=== PATIENT | male | born 1970 | race Caucasian/White ===

== ENCOUNTER 2018-04-27 17:15 | Emergency (ER) | payer SELFPAY ==
--- NOTE | 2018-04-27 18:34 | ER Document Report ---
ED General - General Mode of Arrival: Ambulatory Information source: Patient TRAVEL OUTSIDE OF THE [place] IN LAST 30 DAYS: No - General Chief Complaint: Fall Injury Stated Complaint: FALL/BODY PAIN Time Seen by Provider: 04/27/18 17:49 Notes: Patient is a 47 year old male with asthma and COPD presents to the emergency department complaining of lower back and right shoulder pain onset today. Patient states he fell off a roof due to loosing his footing on a ladder and proceeded to land on his feet then back on the grass. Patient states he is unsure if he had a loss of consciousness further stating he briefly saw black spots while on the ground. Patient also complains of pain with deep breathing. Patient denies any urinary or fecal incontinece or numbness tingling or weakness. Patient mentions his last tetanus shot being approximately 5 years ago. (ROBERT GARCIA) - Related Data Allergies/Adverse Reactions: ibuprofen [From Motrin] Adverse Reaction (Verified 04/27/18 17:16) Nausea Past Medical History - General Information source: Patient - Social History Smoking Status: Current Every Day Smoker Frequency of alcohol use: None Drug Abuse: None Family History: Reviewed & Not Pertinent, CAD, CVA, Hyperlipidemia, Hypertension , Malignancy Patient has suicidal ideation: No Patient has homicidal ideation: No Pulmonary Medical History: Reports: Hx Asthma Past Surgical History: Reports: Hx Abdominal Surgery - Right inguinal hernia, Hx Inguinal Hernia, Hx Orthopedic Surgery - Left arm - Immunizations Immunizations up to date: Yes Hx Diphtheria, Pertussis, Tetanus Vaccination: Yes Review of Systems - Review of Systems Constitutional: No symptoms reported EENT: No symptoms reported Cardiovascular: No symptoms reported Respiratory: See HPI Gastrointestinal: No symptoms reported Genitourinary: No symptoms reported Male Genitourinary: No symptoms reported Musculoskeletal: See HPI Skin: No symptoms reported Hematologic/Lymphatic: No symptoms reported Neurological/Psychological: No symptoms reported -: Yes All other systems reviewed and negative Physical Exam - Vital signs Vitals: Temp Pulse Resp BP Pulse Ox 98.2 F 91 20 116/92 H 97 04/27/18 17:19 04/27/18 17:19 04/27/18 17:19 04/27/18 17:19 04/27/18 17:19 - Notes Notes: GENERAL: Alert, interacts well. No acute distress. HEAD: Normocephalic, atraumatic. EYES: Pupils equal, round, and reactive to light. Extraocular movements intact. ENT: Oral mucosa moist, tongue midline. NECK: Full range of motion. Supple. Trachea midline. LUNGS: Clear to auscultation bilaterally, no wheezes, rales, or rhonchi. No respiratory distress. HEART: Regular rate and rhythm. No murmurs, gallops, or rubs. ABDOMEN: Soft, LLQ and epigastric tenderness to palpation. Non-distended. Bowel sounds present in all 4 quadrants. No bruising or signs of trauma. EXTREMITIES: Moves all 4 extremities spontaneously. 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 No edema , radial and dorsalis pedis pulses 2/4 bilaterally. No cyanosis. NEUROLOGICAL: Alert and oriented x3. Normal speech. Biceps and patellar DTRs 2 + bilaterally. PSYCH: Normal affect, normal mood. SKIN: Warm, dry, normal turgor. Superficial abrasions to the volar aspect of bilateral forearms, no active bleeding. BACK: Tender to palpation to mid back around T19-T10. No tenderness to scapula bilaterally. No step-offs or deformities. (ROBERT GARCIA) Course - Re-evaluation Re-evalutation: 04/27/18 22:18 Ct cervical spine is negative, x-rays of thoracic, lumbar, sacrum and coccyx. Patient has no neurologic deficits. He will be discharged on robaxin and NSAIDs. (BECKY CONN) - Vital Signs Vital signs: Temp Pulse Resp BP Pulse Ox 98 F 91 15 119/70 98 04/27/18 22:01 04/27/18 17:19 04/27/18 22:01 04/27/18 22:01 04/27/18 22:01 Discharge - Discharge Clinical Impression: Fall Qualifiers: Encounter type: initial encounter Qualified Code(s): W19.XXXA - Unspecified fall, initial encounter Abrasion forearm Qualifiers: Encounter type: initial encounter Laterality: right Qualified Code(s): S50.811A - Abrasion of right forearm, initial encounter Back strain Qualifiers: Encounter type: initial encounter Qualified Code(s): S39.012A - Strain of muscle, fascia and tendon of lower back, initial encounter Condition: Stable Disposition: HOME, SELF-CARE Additional Instructions: Please use ibuprofen (Motrin or Advil) 600-800 mg every 8 hours as needed for pain or fever. You may also use acetaminophen (Tylenol) 1000 mg every 4-6 hours as needed for pain or fever. Please be aware that many medications contain acetaminophen, do not exceed a total of 1000 mg of acetaminophen every 6 hours. Prescriptions: Methocarbamol [Robaxin 750 mg Tablet] 750 mg PO ASDIR PRN #40 tablet PRN Reason: Referrals: JASS MACHADO MD [ACTIVE STAFF] - Follow up as needed Scribe Attestation: 04/27/18 23:24 I personally performed the services described in the documentation, reviewed and edited the documentation which was dictated to the scribe in my presence, and it accurately records my words and actions. (BECKY CONN) Scribe Documentation - Scribe Written by Carlos:: Carlos Prado, 04/27/2018 18:45 acting as scribe for :: Janice
[2018-04-27] MEDS ORDERED: MORPHINE SULFATE 10 MG/ML INJ IV ONE (18:49)
--- NOTE | 2018-04-27 19:20 | RADIOLOGY REPORT (SQ) ---
EXAM DESCRIPTION: CT CERVICAL SPINE WITHOUT COMPLETED DATE/TIME: 04/27/2018 7:04 pm REASON FOR STUDY: fell off roof COMPARISON: 09/20/2015 TECHNIQUE: Axial images acquired through the cervical spine without intravenous contrast. Images re viewed with lung, soft tissue and bone windows. Reconstructed coronal and sagittal MPR images review ed. Images stored on PACS. All CT scanners at this facility use dose modulation, iterative reconstruction, and/or weight based d osing when appropriate to reduce radiation dose to as low as reasonably achievable (ALARA). [facility]: Dose Right [facility]: CareDose [facility]: Dose Right [facility]: Teradose 4D [facility]: Smart [employer] RADIATION DOSE: CT Rad equipment meets quality standard of care and radiation dose reduction techniq ues were employed. CTDIvol: 30.4 mGy. DLP: 686 mGy-cm. mGy. LIMITATIONS: None. FINDINGS: ALIGNMENT: Anatomic. MINERALIZATION: Normal. VERTEBRAL BODIES: No fractures or dislocation. DISCS: Multilevel disc space narrowing with osteophytes. FACETS, LATERAL MASSES, POSTERIOR ELEMENTS: Facet arthropathy. No fractures. No dislocation. No ac [place] findings. HARDWARE: None in the spine. VISUALIZED RIBS: No fractures. LUNG APICES AND SOFT TISSUES: No significant or acute findings. OTHER: No other significant finding. IMPRESSION: CHRONIC DEGENERATIVE CHANGES. NO ACUTE FINDINGS. TECHNICAL DOCUMENTATION: JOB ID: [id number] [place]-72 Quality ID # [id number]: Final reports with documentation of one or more dose reduction techniques (e.g., Au tomated exposure control, adjustment of the mA and/or kV according to patient size, use of iterative reconstruction technique) 2010 [employer]- All Rights Reserved Reading location - IP/workstation name: [email or web address]
--- NOTE | 2018-04-27 19:52 | RADIOLOGY REPORT (SQ) ---
EXAM DESCRIPTION: T SPINE AP/LAT COMPLETED DATE/TIME: 04/27/2018 7:24 pm REASON FOR STUDY: fell off roof COMPARISON: None. NUMBER OF VIEWS: Two views. TECHNIQUE: AP and lateral radiographic images acquired of the thoracic spine. LIMITATIONS: None. FINDINGS: MINERALIZATION: Normal. ALIGNMENT: Normal. No scoliosis. VERTEBRAE: No fracture or bone lesion. Maintained height, normal segmentation. DISCS: Multilevel disc space narrowing with osteophytes. HARDWARE: None in the spine. MEDIASTINUM AND SOFT TISSUES: Normal heart size and aortic contour. No soft tissue abnormality. VISUALIZED LUNG BARBER: Clear. OTHER: No other significant finding. IMPRESSION: SPONDYLOSIS WITHOUT BONE LESION OR FRACTURE. TECHNICAL DOCUMENTATION: JOB ID: [id number] [place]-72 2010 [employer]- All Rights Reserved Reading location - IP/workstation name: [email or web address]
--- NOTE | 2018-04-27 19:54 | RADIOLOGY REPORT (SQ) ---
EXAM DESCRIPTION: L SPINE WHOLE COMPLETED DATE/TIME: 04/27/2018 7:24 pm REASON FOR STUDY: fell off roof COMPARISON: 09/20/2015 NUMBER OF VIEWS: Five views including obliques. TECHNIQUE: AP, lateral, oblique, and sacral radiographic images acquired of the lumbar spine. LIMITATIONS: None. FINDINGS: MINERALIZATION: Normal. SEGMENTATION: Normal. No transitional anatomy. ALIGNMENT: Similar anterolisthesis of L5 on S1. VERTEBRAE: Maintained height. No fracture or worrisome bone lesion. DISCS: Multilevel disc space narrowing with osteophytes. POSTERIOR ELEMENTS: Pedicles and facets are intact. Bilateral L5 pars defects. Facet arthropathy is present. HARDWARE: None in the spine. PARASPINAL SOFT TISSUES: Normal. PELVIS: Intact as visualized. No fractures or worrisome bone lesions. SI joints intact. OTHER: No other significant finding. IMPRESSION: No acute findings. TECHNICAL DOCUMENTATION: JOB ID: [id number] [place]-72 2010 [employer]- All Rights Reserved Reading location - IP/workstation name: [email or web address]
--- NOTE | 2018-04-27 19:56 | RADIOLOGY REPORT (SQ) ---
EXAM DESCRIPTION: SACRUM AND COCCYX COMPLETED DATE/TIME: 04/27/2018 7:25 pm REASON FOR STUDY: fell off roof COMPARISON: None. NUMBER OF VIEWS: Three views. TECHNIQUE: AP, lateral, and tilt views of the sacrum and coccyx. LIMITATIONS: None. FINDINGS: MINERALIZATION: Normal. BONES: No acute fracture or dislocation. No worrisome bone lesions. SOFT TISSUES: No soft tissue swelling. No foreign body. OTHER: No other significant finding. IMPRESSION: No fracture identified. TECHNICAL DOCUMENTATION: JOB ID: [id number] [place]-72 2010 [employer] All Rights Reserved Reading location - IP/workstation name: [email or web address]
[2018-04-27 20:14] LABS: APPEARANCE,URINE CLOUDY; BILIRUBIN,URINE NEGATIVE (NEGATIVE); COLOR,URINE YELLOW; GLUCOSE, URINE NEGATIVE (NEGATIVE); KETONES,URINE NEGATIVE (NEGATIVE); LEUKOCYTE ESTERASE,URINE NEGATIVE (NEGATIVE); NITRITE,URINE NEGATIVE (NEGATIVE); PROTEIN,URINE NEGATIVE (NEGATIVE); URINE SPECIFIC GRAVITY 1.024; UROBILINOGEN,URINE NEGATIVE mg/dL (<2.0)
[2018-04-27] MEDS ORDERED: HYDROCODONE/ACETAMINOPHEN 5-325 MG TABLET PO ONE (22:18)
[2018-04-27] MEDS ORDERED: METHOCARBAMOL 750 MG TABLET PO ONE (22:18)
[2018-04-27 22:42] VITALS: BP 119/70
== END 2018-04-27 22:42 | disposition home or self-care (01) ==
LOC: ER 17:15
DX: S39.012A Strain of muscle, fascia and tendon of lower back, initial encounter (principal); S50.811A Abrasion of right forearm, initial encounter; S50.812A Abrasion of left forearm, initial encounter; M25.511 Pain in right shoulder; R07.1 Chest pain on breathing; R10.814 Left lower quadrant abdominal tenderness; R10.816 Epigastric abdominal tenderness; W13.2XXA Fall from, out of or through roof, initial encounter; H53.8 Other visual disturbances; J44.9 Chronic obstructive pulmonary disease, unspecified; F17.200 Nicotine dependence, unspecified, uncomplicated
CPT/HCPCS: 99284; 96374; 81001; 72220; 72110; 72070; 72125; L0120; J3490; J2270

== ENCOUNTER 2018-07-19 02:01 | Observation (INO) | payer SELFPAY ==
[2018-07-19 02:19] LABS: ABSOLUTE EOSINOPHILS # (AUTO) 0.3 10^3/uL (0.0-0.6); ABSOLUTE LYMPHOCYTES (AUTO) 2.2 10^3/uL (0.5-4.7); ABSOLUTE MONOCYTES (AUTO) 0.4 10^3/uL (0.1-1.4); ABSOLUTE NEUT (AUTO) 3.9 10^3/uL (1.7-8.2); BASOPHILS % (AUTO) 0.1 % (0-2); EOSINOPHILS % (AUTO) 4.9 % (0-6); HEMATOCRIT 43.6 % (37.9-51.0); HEMOGLOBIN 14.6 g/dL (13.5-17.0); MEAN CORPUSCULAR HEMOGLOBIN 27.9 pg (27.0-33.4); MEAN CORPUSCULAR HGB CONC 33.4 g/dL (32.0-36.0); MEAN CORPUSCULAR VOLUME 83 fl (80-97); MONOCYTES % (AUTO) 6.4 % (3-13); PLATELET COUNT 291 10^3/uL (150-450); RED BLOOD COUNT 5.23 10^6/uL (4.35-5.55); RED CELL DISTRIBUTION WIDTH 13.8 % (11.5-14.0); SEGMENTED NEUTROPHILS % (AUTO) 56.6 % (42-78); TOTAL CELLS COUNTED % (AUTO) 100 %; WHITE BLOOD COUNT 6.9 10^3/uL (4.0-10.5)
[2018-07-19 02:33] LABS: ALANINE AMINOTRANSFERASE 16 U/L (21-72); ALKALINE PHOSPHATASE 56 U/L (38-126); ANION GAP 9 (5-19); ASPARTATE AMINO TRANSFERASE 27 U/L (17-59); BILIRUBIN,DIRECT 0.2 mg/dL (0.0-0.4); BILIRUBIN,TOTAL 0.3 mg/dL (0.2-1.3); BLOOD UREA NITROGEN 17 mg/dL (7-20); CALCIUM 9.1 mg/dL (8.4-10.2); CARBON DIOXIDE 29 mmol/L (22-30); CHLORIDE 105 mmol/L (98-107); CREATINE KINASE 113 U/L (55-170); GLUCOSE 117 mg/dL (75-110); POTASSIUM 3.7 mmol/L (3.6-5.0); SODIUM 142.5 mmol/L (137-145); TOTAL PROTEIN 7.1 g/dL (6.3-8.2)
[2018-07-19 02:44] LABS: CREATINE KINASE MB 0.62 ng/mL (<4.55); TROPONIN I < 0.012 ng/mL
--- NOTE | 2018-07-19 02:47 | RADIOLOGY REPORT (SQ) ---
EXAM DESCRIPTION: AP view of the chest CLINICAL HISTORY:47 years Male, chest pain Comparison: None FINDINGS: No focal lung consolidation. No pleural effusion. No pneumothorax. Cardiac and mediastinal silhouette is unremarkable. No acute osseous abnormality. Old left clavicle fracture. Soft tissues are unremarkable. IMPRESSION: No acute findings. No focal lung consolidation.
--- NOTE | 2018-07-19 03:19 | ER Document Report ---
ED General - General Chief Complaint: Chest Pain Stated Complaint: CHEST PAIN Time Seen by Provider: 07/19/18 02:04 Notes: Patient is a 47-year-old male presents to the emergency department complaining of generalized substernal chest pain squeezing in nature in the center of his chest radiating to left shoulder blades. Patient states the pain also increases when he takes a deep breath but does not increase on palpation. Patient states he got out of long term this evening and has been walking around [place] over 9 miles trying to find a place to stay. States he tried a homeless center but they would not take him. Patient states as he was walking he and inevitably developed the chest pain. Patient denies shortness of breath, URI symptoms, fever, abdominal pain, nausea, vomiting, dizziness, or feeling lightheaded. Past medical history: COPD, past [place] Medications: Advair, albuterol Allergies: Motrin Patient does admit to smoking cigarettes. TRAVEL OUTSIDE OF THE [place] IN LAST 30 DAYS: No - Related Data Allergies/Adverse Reactions: ibuprofen [From Motrin] Adverse Reaction (Verified 04/27/18 17:16) Nausea Past Medical History - General Information source: Patient - Social History Smoking Status: Current Every Day Smoker Family History: Reviewed & Not Pertinent, CAD, CVA, Hyperlipidemia, Hypertension, Malignancy Pulmonary Medical History: Reports: Hx Asthma Renal/ Medical History: Denies: Hx Peritoneal Dialysis Past Surgical History: Reports: Hx Abdominal Surgery - Right inguinal hernia, Hx Inguinal Hernia, Hx Orthopedic Surgery - Left arm - Immunizations Immunizations up to date: Yes Hx Diphtheria, Pertussis, Tetanus Vaccination: Yes Review of Systems - Review of Systems Constitutional: No symptoms reported EENT: No symptoms reported Cardiovascular: See HPI Respiratory: See HPI Gastrointestinal: No symptoms reported Genitourinary: No symptoms reported Male Genitourinary: No symptoms reported Musculoskeletal: No symptoms reported Skin: No symptoms reported Hematologic/Lymphatic: No symptoms reported Neurological/Psychological: No symptoms reported Physical Exam - Vital signs Vitals: Pulse Ox 97 07/19/18 02:04 - Notes Notes: GENERAL: Alert, interacts well. No acute distress. HEAD: Normocephalic, atraumatic. EYES: Pupils equal, round, and reactive to light. Extraocular movements intact. ENT: Oral mucosa moist, tongue midline. NECK: Full range of motion. Supple. Trachea midline. LUNGS: Clear to auscultation bilaterally, no wheezes, rales, or rhonchi. No respiratory distress. HEART: Regular rate and rhythm. No murmur Chest: No crepitus felt, no erythema or ecchymosis noted anterior posterior trunk ABDOMEN: Soft, non-tender. Non-distended. Bowel sounds present in all 4 quadrants. EXTREMITIES: Moves all 4 extremities spontaneously. No edema, normal radial and dorsalis pedis pulses bilaterally. No cyanosis. BACK: no cervical, thoracic, lumbar midline tenderness. No saddle anesthesia, normal distal neurovascular exam. NEUROLOGICAL: Alert and oriented x3. Normal speech. cranial nerves II through XII grossly intact. PSYCH: Normal affect, normal mood. SKIN: Warm, dry, normal turgor. No rashes or lesions noted. Course - Re-evaluation Re-evalutation: 07/19/18 03:19 Patient initially states he has a history of a heart attack. States he was seen "at another hospital around here." In discussing this diagnosis with patient he denies ever having a cardiac catheterization done, denies any stent placement or open heart surgery. Patient denies being placed on any antihypertensive, antihyperlipidemia or anticoagulant medications. Pt. is unsure if he has ever had a stress test preformed. 07/19/18 02:31 Initial EKG shows sinus rhythm rate of 64, QTc 425, no ST segment elevations or depressions. Patient's initial troponin was negative. Patient continues to be chest pain-free at this time. 07/19/18 06:07 Repeat EKG sinus rhythm heart rate 56 QTC 402, no ST segment elevations or depressions. Patient continues to be chest pain-free at this time. He has a heart score of 2 1 point for his age and one point for risk factors. Patient has had 2 negative troponins in the emergency room. 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 Patient voices understanding in the emergency department and is requesting to be discharged at this time. 07/19/18 06:56 Per nurse patient was getting up to use the bathroom prior to discharge, states he felt nauseated redeveloped his substernal chest tightness and had one episode of vomiting. Patient states he now continues with the chest tightness in the middle of his chest, nonradiating. Patient denies abdominal pain, but is admitting to nausea at this time. 07/19/18 06:[address] Lemus who recommends admitting the Pt. for chest pain rule out. Repeat EKG ordered, shows NSR heart rate 57, QTc 394, no ST segment elevations or depressions noted. Repeat troponin ordered, Zofran given for nausea. Patient is also being treated with nitroglycerin for chest discomfort. 07/19/18 07:39 Patient's now saying he no longer has chest discomfort after nitroglycerin administration. Patient was also given Zofran and has had no more episodes of vomiting. Discussed this case with hospitalist Dr. Lebron who will admit the patient for chest pain rule out. - Vital Signs Vital signs: Temp Pulse Resp BP Pulse Ox 13 122/80 94 07/19/18 07:00 07/19/18 07:00 07/19/18 07:01 - Laboratory Result Diagrams: 07/19/18 02:06 07/19/18 02:06 Laboratory results interpreted by me: 07/19/18 02:06 Glucose 117 H ALT 16 L Discharge - Discharge Clinical Impression: Chest pain Qualifiers: Chest pain type: unspecified Qualified Code(s): R07.9 - Chest pain, unspecified Condition: Stable Disposition: ADMITTED OBSERVATION Admitting Provider: Hospitalist - Vi Unit Admitted: Telemetry Additional Instructions: As we discussed you have been seen and treated in the emergency department for chest pain. Your EKG and lab work are unremarkable. Please follow-up with your primary care provider within 24 hours. Please return to the emergency room should your chest pain return or you have any other concerning symptoms.
[2018-07-19] MEDS ORDERED: ACETAMINOPHEN 325 MG TABLET PO ONE (05:21)
--- NOTE | 2018-07-19 06:40 | EKG REPORT ---
SEVERITY:- NORMAL ECG - SINUS RHYTHM : Confirmed by: Faisal Yun MD 19-Jul-2018 06:38:59
--- NOTE | 2018-07-19 06:40 | EKG REPORT ---
SEVERITY:- NORMAL ECG - SINUS RHYTHM : Confirmed by: Faisal Yun MD 19-Jul-2018 06:39:07
[2018-07-19] MEDS: NITROGLYCERIN 0.4 MG/TAB 25 TAB/BOTTLE SL PRN ×2 (06:55→07:10)
[2018-07-19] MEDS ORDERED: ONDANSETRON HCL INJ/PF 4 MG/2 ML SDV IV ONE (06:57)
[2018-07-19] MEDS ORDERED: OXYCODONE-ACETAMINOPHEN 5-325 MG TABLET PO PRN (08:24)
[2018-07-19] MEDS ORDERED: IPRATROPIUM/ALBUTEROL 0.5-2.5 MG/3 ML AMPUL NEB PRN (08:24)
--- NOTE | 2018-07-19 08:37 | PDOC H&P ---
History of Present Illness Admission Date/PCP: 07/19/18 07:53 History of Present Illness: ADRI MARTINEZ is a 47 year old male patient with past medical history of COPD tobacco dependence and history of DE presented with chief complaint of chest pain localized to his precordium and radiating to his left scapula. The pain is dull precipitated by exertion and relieved by nitroglycerin. Patient also claims the chest pain is associated with deep breathing. ER notes patient states he got out of prison this evening and has been walking around [place] Over 9 months trying to find a place to stay. States he tried a homeless center but they would not take him. Patient states as he was walking he he developed chest pain. He denied any fever chills cough palpitation or diaphoresis. Past Medical History Pulmonary Medical History: Reports: Asthma Past Surgical History Past Surgical History: Reports: Orthopedic Surgery - Left arm Social History Smoking Status: Current Every Day Smoker Frequency of Alcohol Use: None Hx Recreational Drug Use: No Hx Prescription Drug Abuse: No - Advance Directive Resuscitation Status: Full Code Family History Family History: Reviewed & Not Pertinent, CAD, CVA, Hyperlipidemia, Hypertension, Malignancy Parental Family History Reviewed: Yes Children Family History Reviewed: Yes Sibling(s) Family History Reviewed.: Yes Medication/Allergy Home Medications: Cyclobenzaprine HCl [Flexeril 10 mg Tablet] 10 mg PO Q8 PRN #10 tablet 09/20/15 Hydrocodone/Acetaminophen [[place] 5-325 mg Tablet] 1 tab PO Q4 PRN #10 tablet 09/20/15 Oxycodone HCl/Acetaminophen [Percocet 5-325 mg Tablet] 1 - 2 tab PO ASDIR PRN #15 tablet 01/19/16 Hydrocodone/Acetaminophen [[place] 5-325 Tablet] 1 each PO QID #15 tablet 05/07/16 Methocarbamol [Robaxin 750 mg Tablet] 750 mg PO ASDIR PRN #40 tablet 04/27/18 Allergies/Adverse Reactions: ibuprofen [From Motrin] Adverse Reaction (Verified 04/27/18 17:16) Nausea Review of Systems Constitutional: PRESENT: as per HPI Ears: PRESENT: as per HPI Cardiovascular: PRESENT: as per HPI Respiratory: PRESENT: as per HPI Gastrointestinal: PRESENT: as per HPI Musculoskeletal: PRESENT: as per HPI Neurological: PRESENT: as per HPI Psychiatric: PRESENT: as per HPI Physical Exam Vital Signs: Temp Pulse Resp BP Pulse Ox 13 122/80 94 07/19/18 07:00 07/19/18 07:00 07/19/18 07:01 Intake & Output 07/18/18 07/19/18 07/20/18 06:59 06:59 06:59 Weight 183 kg General appearance: PRESENT: no acute distress, well-developed, well-nourished Head exam: PRESENT: atraumatic, normocephalic Eye exam: PRESENT: conjunctiva pink, EOMI, PERRLA. ABSENT: scleral icterus Ear exam: PRESENT: normal external ear exam Mouth exam: PRESENT: moist, tongue midline Neck exam: ABSENT: carotid bruit, JVD, lymphadenopathy, thyromegaly Respiratory exam: PRESENT: clear to auscultation felipe. ABSENT: rales, rhonchi, wheezes Cardiovascular exam: PRESENT: RRR. ABSENT: diastolic murmur, rubs, systolic murmur Pulses: PRESENT: normal dorsalis pedis pul Vascular exam: PRESENT: normal capillary refill GI/Abdominal exam: PRESENT: normal bowel sounds, soft. ABSENT: distended, guarding, mass, organolmegaly, rebound, tenderness Rectal exam: PRESENT: deferred Extremities exam: PRESENT: full ROM. ABSENT: calf tenderness, clubbing, pedal edema Neurological exam: PRESENT: alert, awake, oriented to person, oriented to place, oriented to time, oriented to situation, CN II-XII grossly intact. ABSENT: motor sensory deficit Psychiatric exam: PRESENT: appropriate affect, normal mood. ABSENT: homicidal ideation, suicidal ideation Skin exam: PRESENT: dry, intact, warm. ABSENT: cyanosis, rash Results Laboratory Results: 07/19/18 02:06 07/19/18 02:06 07/19/18 07/19/18 02:06 02:06 WBC 6.9 RBC 5.23 Hgb 14.6 Hct 43.6 MCV 83 MCH 27.9 MCHC 33.4 RDW 13.8 Plt Count 291 Seg Neutrophils % 56.6 Lymphocytes % 32.0 Monocytes % 6.4 Eosinophils % 4.9 Basophils % 0.1 Absolute Neutrophils 3.9 Absolute Lymphocytes 2.2 Absolute Monocytes 0.4 Absolute Eosinophils 0.3 Absolute Basophils 0.0 Sodium 142.5 Potassium 3.7 Chloride 105 Carbon Dioxide 29 Anion Gap 9 BUN 17 Creatinine 0.93 Est GFR ( Amer) > 60 Est GFR (Non-Af Amer) > 60 Glucose 117 H Calcium 9.1 Total Bilirubin 0.3 AST 27 ALT 16 L Alkaline Phosphatase 56 Total Protein 7.1 Albumin 4.0 07/19/18 07/19/18 07/19/18 02:06 02:06 05:15 Creatine Kinase 113 CK-MB (CK-2) 0.62 Troponin I < 0.012 < 0.012 07/19/18 06:20 Creatine Kinase CK-MB (CK-2) Troponin I < 0.012 Impressions: Chest X-Ray 07/19/18 02:04 IMPRESSION: No acute findings. No focal lung consolidation. Assessment & Plan - Diagnosis (1) Chest pain Qualifiers: Chest pain type: unspecified Qualified Code(s): R07.9 - Chest pain, unspecified Is this a current diagnosis for this admission?: Yes Plan: We will admit the patient for observation. 3 sets of cardiac enzymes which are negative no EKG changes. (2) COPD (chronic obstructive pulmonary disease) Qualifiers: Emphysema type: unspecified Is this a current diagnosis for this admission?: Yes Plan: As needed breathing treatment (3) Tobacco dependence Is this a current diagnosis for this admission?: Yes Plan: And advised that it encouraged to quit smoking.
[2018-07-19] MEDS ORDERED: FAMOTIDINE 20 MG TABLET PO SCH (10:00)
[2018-07-19] MEDS ORDERED: ENOXAPARIN SODIUM INJ 40 MG/0.4 ML DISP.SYRIN SUBCUT SCH (10:00)
--- NOTE | 2018-07-19 11:36 | EKG REPORT ---
SEVERITY:- NORMAL ECG - SINUS RHYTHM : Confirmed by: Faisal Yun MD 19-Jul-2018 11:35:39
[2018-07-19 12:47] VITALS: BP 116/81
--- NOTE | 2018-07-19 18:31 | Progress Note ---
Provider Note Provider Note: This is 47 years old male patient admitted this morning for chest pain. Even though his 3 sets of cardiac enzymes and EKGs are negative have patient admitted for observation since he has some risk factor including hypertension, smoking and early demise due to HI in his first-degree relatives. After several hours patient want to check out. I myself and the nurse in charge of him try to convince him to stay behind for at least overnight but despite all our advice patient was adamant and left AGAINST MEDICAL ADVICE.
== END 2018-07-19 16:00 | disposition left against medical advice (07) ==
LOC: ER 02:01 → EH 07:53 → 4N 12:14
PROVIDERS: ADMIT Internal Medicine; ATTEND Internal Medicine
DX: R07.9 Chest pain, unspecified (principal); Z53.21 Procedure and treatment not carried out due to patient leaving prior to being seen by health care provider; I10 Essential (primary) hypertension; Z82.49 Family history of ischemic heart disease and other diseases of the circulatory system; F17.210 Nicotine dependence, cigarettes, uncomplicated; J44.9 Chronic obstructive pulmonary disease, unspecified; I25.2 Old myocardial infarction; Z88.6 Allergy status to analgesic agent; Z59.0 Homelessness; R11.2 Nausea with vomiting, unspecified
CPT/HCPCS: 93005; 99285; 96372; 96374; 36415; 82553; 82550; 85025; 80053; 84484; 71045; 93010; J1650; J3490; J2405; G0378

== ENCOUNTER 2018-08-01 21:03 | Emergency (ER) | payer OTHER ==
[2018-08-02] MEDS ORDERED: LIDOCAINE 1% INJ-PF (10 MG/ML) 30 ML SDV INJ ONE (00:59)
--- NOTE | 2018-08-02 02:33 | ER Document Report ---
ED General - General Chief Complaint: Laceration Stated Complaint: LACERATION Time Seen by Provider: 08/02/18 00:48 Notes: Patient is a very pleasant 47-year-old male who presents with complaint of a laceration to the thenar eminence of his right hand. He says he was cleaning a glass that had a very broken and therefore had a sharp edge. The sharp edge caught his hand and cut it. He has had a tetanus shot within the last 5 years. He denies any numbness or weakness into the thumb. No other complaints at this time. TRAVEL OUTSIDE OF THE [place] IN LAST 30 DAYS: No - Related Data Allergies/Adverse Reactions: ibuprofen [From Motrin] Adverse Reaction (Verified 04/27/18 17:16) Nausea Past Medical History - Social History Smoking Status: Current Every Day Smoker Frequency of alcohol use: None Drug Abuse: None Family History: Reviewed & Not Pertinent, CAD, CVA, Hyperlipidemia, Hypertension, Malignancy Patient has suicidal ideation: No Patient has homicidal ideation: No - Past Medical History Cardiac Medical History: Reports: Hx Heart Attack Pulmonary Medical History: Reports: Hx Asthma, Hx COPD Renal/ Medical History: Denies: Hx Peritoneal Dialysis Past Surgical History: Reports: Hx Abdominal Surgery - Right inguinal hernia, Hx Inguinal Hernia, Hx Orthopedic Surgery - Left arm - Immunizations Immunizations up to date: Yes Hx Diphtheria, Pertussis, Tetanus Vaccination: Yes Review of Systems - Review of Systems Notes: My Normal Review Basic REVIEW OF SYSTEMS: CONSTITUTIONAL : Denies fever, chills, or sweats. Denies recent illness. MUSCULOSKELETAL: Laceration to right thenar eminence. SKIN: Denies rash or skin lesions. HEMATOLOGIC : Denies easy bruising or bleeding. NEUROLOGICAL: Denies sensory or motor loss. ALL OTHER SYSTEMS REVIEWED AND NEGATIVE. Physical Exam - Vital signs Vitals: Temp Pulse Resp BP Pulse Ox 98.2 F 82 20 130/78 H 95 08/02/18 02:48 08/02/18 02:48 08/02/18 02:48 08/02/18 02:48 08/02/18 02:48 - Notes Notes: General Appearance: Well nourished, alert, cooperative, no acute distress, no obvious discomfort. Vitals: reviewed, See vital signs table. Extremities: strength 5/5 in all extremities, 3 cm laceration that goes just into the subcutaneous tissue at the base of the right thumb over the thenar eminence. No active bleeding. Patient has good distal sensation in his thumb. He is able to move his thumb with any difficulty but does have some pain with abduction of the thumb. I did explore the cut to the base. I do not see any evidence of involvement of tendon or muscle tissue. Skin: warm, dry, appropriate color, no rash Neuro: speech clear, oriented x 3, normal affect, responds appropriately to questions. Course - Re-evaluation Re-evalutation: 08/02/18 08:53 Wound was thoroughly irrigated and cleaned. I did numb the wound prior to repair. 6 sutures were placed. Patient tolerated this well. Patient is already up-to-date tetanus. He is encouraged to return to ER if he has any redness or swelling or signs of infection. Patient agrees with plan will be discharged home. Dictation of this chart was performed using voice recognition software; therefore, there may be some unintended grammatical errors. 08/02/18 08:53 - Vital Signs Vital signs: Temp Pulse Resp BP Pulse Ox 98.2 F 82 20 130/78 H 95 08/02/18 02:48 08/02/18 02:48 08/02/18 02:48 08/02/18 02:48 08/02/18 02:48 Procedures - Laceration/Wound Repair Right Hand Wound length (cm): 2 Wound's Depth, Shape: Linear Laceration pre-procedure: Chloraprep applied Anesthetic type: 1% Lidocaine Volume Anesthetic (mLs): 3 Wound explored: Clean Wound Repaired With: Sutures Suture Size/Type: 5:0, Ethilon Number of Sutures: 6 Complications: No Discharge - Discharge Clinical Impression: Laceration Condition: Good Disposition: HOME, SELF-CARE Additional Instructions: LACERATION CARE: Your laceration has been sutured to keep the skin edges aligned during healing. The time of suture removal depends on the nature and location of your cut. Please follow the care instructions the doctor has outlined for you and return for further care, according to the schedule you've been given. Keep the wound and dressing clean. Unless you were told otherwise, you may shower daily, blotting the wound dry with a clean, unused towel. At other times, If the dressing gets wet or blood soaked, remove it and blot the wound dry, then reapply a new dressing. Unless you were instructed otherwise, dressings should be changed at least daily. If any signs of infection occur (swelling, redness, drainage, increasing tenderness, red streaks, tender lumps in the armpit or groin above the laceration, or fever), see the doctor immediately. SOAP CLEANSING: Gently wash the wound daily using a mild soap (like Ivory, Phisoderm, Neutrogena). Use warm water, rubbing gently until all debris, ooze, and crusting have been washed from the wound. Allow to dry briefly (about 10 minutes) after cleaning. Repeat this cleansing at least three times a day for the first two days and then once or twice a day. FOLLOW-UP CARE: Your sutures should be removed in __7___ days. To facilitate a timely removal of your sutures, you may return to the Emergency Department at [facility]. You do not need to call for an appointment, but the best time to come in for suture removal is early in the morning. If you have been referred to another physician for follow-up care, call that physicians office for an appointment as you were instructed. If you experience a significant change in your laceration, or if you are concerned there may be an infection (swelling, redness, drainage, increasing tenderness, red streaks, tender lumps in the armpit or groin above the laceration, or fever), return to the Emergency Department immediately re-evaluation. Forms: Return to Work
[2018-08-02 02:48] VITALS: BP 130/78
== END 2018-08-02 02:45 | disposition home or self-care (01) ==
LOC: ER 21:03
DX: S61.411A Laceration without foreign body of right hand, initial encounter (principal); W25.XXXA Contact with sharp glass, initial encounter; Y93.G1 Activity, food preparation and clean up; F17.200 Nicotine dependence, unspecified, uncomplicated; J44.9 Chronic obstructive pulmonary disease, unspecified
CPT/HCPCS: 99283; 12001; J3490

== ENCOUNTER 2018-08-08 16:52 | Emergency (ER) | payer OTHER ==
[2018-08-08 16:57] VITALS: BP 157/108
[2018-08-08] MEDS ORDERED: CEPHALEXIN 500 MG CAPSULE PO ONE (18:25)
--- NOTE | 2018-08-08 18:27 | ER Document Report ---
HPI - HPI Patient complains to provider of: Suture removal Time Seen by Provider: 08/08/18 18:02 Onset: Last week Quality of pain: Achy Pain Level: 2 Context: Patient presents for suture removal to laceration on right hand. Patient states he initially had 6 sutures placed but to have come out. Patient states that he was doing dishes last night and noticed bleeding from the laceration. Patient states he is noticed area has become mildly erythematous and he is worried that it may be infected after washing dishes. Patient denies any fever. Associated Symptoms: Other - Sutured laceration with mild erythema around wound Exacerbated by: Denies Relieved by: Denies Similar symptoms previously: No Recently seen / treated by doctor: No - ROS ROS below otherwise negative: Yes Systems Reviewed and Negative: Yes All other systems reviewed and negative - CONSTITUTIONAL Constitutional: DENIES: Fever, Chills - CARDIOVASCULAR Cardiovascular: DENIES: Chest pain - RESPIRATORY Respiratory: DENIES: Trouble Breathing, Coughing - MUSCULOSKELETAL Musculoskeletal: REPORTS: Extremity pain - right thumb - DERM Skin Problems: Laceration Past Medical History - General Information source: Patient - Social History Smoking Status: Current Every Day Smoker Chew tobacco use (# tins/day): No Frequency of alcohol use: None Drug Abuse: None Occupation: [employer] Lives with: Family Family History: Reviewed & Not Pertinent, CAD, CVA, Hyperlipidemia, Hypertension, Malignancy Patient has suicidal ideation: No Patient has homicidal ideation: No - Past Medical History Cardiac Medical History: Reports: Hx Heart Attack Pulmonary Medical History: Reports: Hx Asthma, Hx COPD Renal/ Medical History: Denies: Hx Peritoneal Dialysis Past Surgical History: Reports: Hx Abdominal Surgery - Right inguinal hernia, Hx Inguinal Hernia, Hx Orthopedic Surgery - Left arm - Immunizations Immunizations up to date: Yes Hx Diphtheria, Pertussis, Tetanus Vaccination: Yes Vertical Provider Document - CONSTITUTIONAL Agree With Documented VS: No Exam Limitations: No Limitations General Appearance: WD/WN, No Apparent Distress - INFECTION CONTROL TRAVEL OUTSIDE OF THE [place] IN LAST 30 DAYS: No - HEENT HEENT: Atraumatic, Normocephalic - NECK Neck: Normal Inspection, Supple - RESPIRATORY Respiratory: Breath Sounds Normal, No Respiratory Distress - CARDIOVASCULAR Cardiovascular: Regular Rate, Regular Rhythm. negative: Tachycardia Pulses: Normal: Radial - BACK Back: Normal Inspection - MUSCULOSKELETAL/EXTREMETIES Musculoskeletal/Extremeties: MAEW, Tender - Tenderness to the thenar eminence of right hand, no tendon deficit subtle 1+ edema surrounding laceration to right hand, Edema - NEURO Level of Consciousness: Awake, Alert, Appropriate Motor/Sensory: No Motor Deficit - DERM Integumentary: Warm, Dry, Laceration - Sutured laceration to the thenar eminence right hand with 4 intact sutures. Mild swelling to the area with a subtle erythema, no drainage noted from wound Course - Re-evaluation Re-evalutation: 08/08/18 Patient encouraged to avoid any submersion of the laceration as it continues to heal. Discussed worsening symptoms that patient should return immediately for. Patient verbalized understanding and agrees with plan of care. - Vital Signs Vital signs: Temp Pulse Resp BP Pulse Ox 98.4 F 120 H 18 157/108 H 94 08/08/18 16:55 08/08/18 16:55 08/08/18 16:55 08/08/18 16:55 08/08/18 16:55 Discharge - Discharge Clinical Impression: Visit for suture removal Cellulitis Qualifiers: Site of cellulitis: extremity Site of cellulitis of extremity: upper extremity Laterality: right Qualified Code(s): L03.113 - Cellulitis of right upper limb Condition: Stable Disposition: HOME, SELF-CARE Instructions: Cellulitis ([facility]), Cephalexin ([facility]), Suture Removal Additional Instructions: Return immediately for any new or worsening symptoms Followup with your primary care provider, call tomorrow to make a followup appointment Avoid submerging right hand under water to prevent any complications with your wound closure for the next 4 days. Prescriptions: Cephalexin Monohydrate [Keflex 500 mg Capsule] 500 mg PO Q6H 5 Days capsule Forms: Return to Work Referrals: MUNA GOODMAN DO [ACTIVE STAFF] - Follow up as needed
== END 2018-08-08 18:58 | disposition home or self-care (01) ==
LOC: ER 16:52
DX: S61.411D Laceration without foreign body of right hand, subsequent encounter (principal); L03.113 Cellulitis of right upper limb; X58.XXXD Exposure to other specified factors, subsequent encounter